=== PATIENT | female | born 1945 | race Caucasian/White ===

== ENCOUNTER → 2019-05-26 | Outpatient (CLI) | payer MEDICARE, BC ==
--- NOTE | 2019-05-26 16:05 | PCVCIMAG ---
EXAM: RIGHT LEG SUPERFICIAL VENOUS DUPLEX INDICATION: Leg pain and swelling. FINDINGS: Right leg: No thrombus in the common femoral, main femoral, or popliteal veins. These veins are compressible. 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 Right Small Saphenous Vein: At the saphenopopliteal junction the diameter is 4.5 mm, and in the calf it is 4.4 mm. There is not significant venous insufficiency/reflux throughout. Venous insufficiency/reflux duration is 0 seconds. There is not a cranial extension present. IMPRESSION: Satisfactory post ablation change in the right great saphenous vein. Right Small Saphenous Vein: No significant venous insufficiency/reflux is present as noted above. Incidental note is made of right knee joint effusion. LOC:[id number]
== END | disposition home or self-care (01) ==
LOC: PCVCIMAG 12:45
PROVIDERS: ATTEND Family Medicine
DX: M25.461 Effusion, right knee (principal); M79.89 Other specified soft tissue disorders
CPT/HCPCS: 93971